=== PATIENT | female | born 1965 | race Caucasian/White ===

== ENCOUNTER 2017-04-09 10:30 | Outpatient (CLI) | payer OTHER | END 2017-04-09 10:31 | disposition home or self-care (01) | LOC: BICMAMMO 10:30 | PROVIDERS: ATTEND Obstetrics & Gynecology | DX: Z12.31 Encounter for screening mammogram for malignant neoplasm of breast (principal); R92.1 Mammographic calcification found on diagnostic imaging of breast | CPT/HCPCS: 77063; 77067 ==

== ENCOUNTER 2018-02-19 15:05 | Outpatient (CLI) | payer OTHER | END 2018-02-19 15:06 | disposition home or self-care (01) | LOC: DTY/OP 15:05 | PROVIDERS: ATTEND Specialist | DX: Z01.818 Encounter for other preprocedural examination (principal); E66.01 Morbid (severe) obesity due to excess calories | CPT/HCPCS: 97802 ==

== ENCOUNTER 2018-03-24 08:57 | Outpatient (CLI) | payer OTHER | END 2018-03-24 08:58 | disposition home or self-care (01) | LOC: DTY/OP 08:57 | PROVIDERS: ATTEND Specialist | DX: Z01.818 Encounter for other preprocedural examination (principal); E66.01 Morbid (severe) obesity due to excess calories | CPT/HCPCS: 97802 ==

== ENCOUNTER 2018-04-20 08:57 | Outpatient (CLI) | payer OTHER | END 2018-04-20 08:58 | disposition home or self-care (01) | LOC: DTY/OP 08:57 | PROVIDERS: ATTEND Specialist | DX: Z01.818 Encounter for other preprocedural examination (principal); E66.01 Morbid (severe) obesity due to excess calories | CPT/HCPCS: 97802 ==

== ENCOUNTER 2018-05-26 08:50 | Outpatient (CLI) | payer OTHER | END 2018-05-26 08:51 | disposition home or self-care (01) | LOC: DTY/OP 08:50 | PROVIDERS: ATTEND Family Medicine | DX: Z01.818 Encounter for other preprocedural examination (principal); E66.01 Morbid (severe) obesity due to excess calories | CPT/HCPCS: 97802 ==

== ENCOUNTER 2018-07-27 05:21 | Outpatient (CLI) | payer OTHER ==
[2018-07-27 15:33] LABS: #Basophils 0.1 thou/uL (0.0-0.2); #Eosinphils 0.1 thou/uL (0.0-0.7); #Lymphocytes 2.4 thou/uL (1.20-3.40); #Monocytes 0.6 thou/uL (0.11-0.59); #Neutrophils 6.7 thou/uL (1.40-6.50); %Basophils 0.8 % (0.0-1.0); %Eosinophils 1.1 % (0.0-10.0); %Lymphocytes 24.5 % (21.0-51.0); %Monocytes 6.2 % (0.0-10.0); %Neutrophils 67.5 % (42.0-75.0); Hemoglobin 14.7 g/dL (12.0-16.0); Mean Corpuscular HGB CONC 34.4 g/dL (32.0-36.0); Mean Corpuscular Hemoglobin 32.2 pg (27.0-31.0); Mean Corpuscular Volume 93.7 fL (78.0-98.0); Mean Platelet Volume 7.8 fL (7.4-10.4); Platelet Count 278 thou/uL (130-400); RBC Distribution Width 11.5 % (11.5-14.5); Red Blood Cell (RBC) Count 4.57 mill/uL (4.20-5.40)
[2018-07-27 15:41] LABS: Hemoglobin A1c 5.1 % (4.0-6.0)
[2018-07-27 15:50] LABS: Anion Gap 15 mmol/L (10-20); BUN (Urea Nitrogen) 20 mg/dL (9.8-20.1); Calc. Creatinine Clearance 0 mL/min (70-130); Calcium 9.7 mg/dL (7.8-10.44); Carbon Dioxide 26 mmol/L (22-29); Chloride 104 mmol/L (98-107); Estimated GFR-MDRD 75; Glucose 84 mg/dL (70-105); Potassium 4.5 mmol/L (3.5-5.1); Sodium 140 mmol/L (136-145)
== END 2018-07-27 05:22 | disposition home or self-care (01) ==
LOC: LABBT 05:21
PROVIDERS: ATTEND Specialist
DX: Z01.818 Encounter for other preprocedural examination (principal); E66.01 Morbid (severe) obesity due to excess calories; K21.9 Gastro-esophageal reflux disease without esophagitis; I10 Essential (primary) hypertension
CPT/HCPCS: 80048; 83036; 85025; 93005; 93010

== ENCOUNTER 2018-07-27 14:00 | Inpatient (IN) | payer OTHER ==
[2018-07-27 14:31] VITALS: BMI 37.4
[2018-07-29] MEDS ORDERED: Midazolam HCl 2 mg/2 ml Vial ONE (06:08)
[2018-07-29] MEDS ORDERED: Fentanyl 250 MCG/5 ML VIAL ONE (06:08)
[2018-07-29] MEDS ORDERED: Lidocaine 2% Jelly 5 ML TUBE ONE (06:08)
[2018-07-29] MEDS ORDERED: Bupivacaine/Epinephrine 0.25% 30 ML VIAL ONE ×2 (06:32→06:53)
[2018-07-29] MEDS ORDERED: Scopolamine 1.5 mg/72 hour Patch ONE (06:46)
[2018-07-29] MEDS ORDERED: Ketorolac Tromethamine 30 MG/ML VIAL ONE (06:46)
[2018-07-29] MEDS ORDERED: Levofloxacin 500 mg/D5W 100 ml Premix Bag ONE (06:46)
[2018-07-29] MEDS ORDERED: Heparin 5,000 UNITS/ML VIAL ONE (06:46)
[2018-07-29] MEDS ORDERED: Bupivacaine 0.25% HCL 30 ML VIAL ONE (06:47)
--- NOTE | 2018-07-29 07:56 | HP ---
HISTORY OF PRESENT ILLNESS: Delfina Truong is a 53-year-old female presenting for bariatric surgery. She attended our bariatric seminar, has seen our dietitian for education regarding laparoscopic sleeve gastrectomy, and pre and postoperative dietary changes. She is well aware of the risks and benefits of the operation. She had a nuclear stress test in 02/2015, that was normal. I initially saw her in the office on 02/05/2018. The patient is followed by Dr. David Cortez. Initially when I saw her, BMI was 39 and 229 pounds, presenting to the online seminar. She has multiple friends, who have had bariatric surgery including sleeve gastrectomy and gastric bypass. They have done well. Considering her bariatric surgical options, she desires sleeve gastrectomy. The patient is self-employed with her , managing storage facility. The patient understands she will have to make good food choices and lifestyle changes to have a durable success after bariatric surgery. Comorbidities include hypertension, but has been able to discontinue medications for this due to improved control. She has been treated for elevated cholesterol. She has GERD occasionally when over eating or eating late night meals, but overall this is not debilitating. She takes PPIs p.r.n. She has been diagnosed with sleep apnea, sleep study in the past, but does not have a CPAP. Initially when I saw her, she was 229 pounds and BMI 39 and in her preoperative visit, she is 217 pounds, 37 BMI. The patient is ready to proceed with laparoscopic sleeve gastrectomy. Preoperative labs on 02/05/2018, reveal normal CBC, normal comprehensive metabolic profile, cholesterol 183, triglycerides slightly elevated at 207, hemoglobin A1c 5.1, thyroid function tests are normal. Ferritin and vitamin D are within normal range. Folate and vitamin B12 within normal range and H pylori negative. Vitamin B1 was in the normal range. MEDICATIONS: 1. Estradiol. 2. Levothyroxine . 3. Vitamin D3 supplements. PAST MEDICAL HISTORY: As noted above. Negative cardiac stress test. She has seen Dr. Bunn in the past for colonoscopies and upper endoscopies. Hyperlipidemia; depression; mild GERD, treated with p.r.n. PPIs; hypothyroidism; arthralgias; and elevated cholesterol. PAST SURGICAL HISTORY: Thymectomy, pericardiectomy in 2011 due to benign tumor, endometriosis, total hysterectomy and bilateral salpingo-oophorectomy in 2001, tonsillectomy in 1970, appendectomy in 1990, cholecystectomy in 2000, and colonoscopy in 2009. FAMILY HISTORY: Father ; diabetes, stroke, arthritis, prostate cancer, thyroid, and hypertension. Her siblings are alive with arthritis and thyroid disease. TOBACCO: None. ALCOHOL: None. DRUG USE: None. ALLERGIES: PENICILLIN, AZITHROMYCIN, TETANUS TOXOID, AND SULFA. REVIEW OF SYSTEMS: Noncontributory. PHYSICAL EXAMINATION: VITAL SIGNS: 5 feet 4 inches, 217 pounds, 37 BMI. Blood pressure 133/75, heart rate 75, and temperature 97.9 degrees. HEAD, EARS, EYES, NOSE, AND THROAT: Unremarkable. LUNGS: Clear to auscultation. CARDIAC: Regular rate and rhythm. No murmur or gallop. ABDOMEN: Soft, obese, nontender. EXTREMITIES: Unremarkable. ASSESSMENT: Morbid obesity. PLAN: Laparoscopic sleeve gastrectomy. She understands risks and benefits of the operation and consents and we will proceed. Job ID: [id number]
[2018-07-29] MEDS ORDERED: Promethazine HCl 25 MG/ML VIAL SLOW IVP PRN (08:26)
[2018-07-29] MEDS ORDERED: Promethazine HCl 25 MG/ML VIAL IM PRN (08:26)
[2018-07-29] MEDS ORDERED: Ondansetron HCl/PF 4 MG/2 ML Vial IVP PRN (08:26)
[2018-07-29] MEDS ORDERED: Morphine 4 MG/ML VIAL SLOW IVP PRN (08:58)
[2018-07-29] MEDS ORDERED: hydrALAZINE 20 MG/ML VIAL SLOW IVP PRN (08:58)
[2018-07-29] MEDS ORDERED: diphenhydrAMINE 50 MG/ML VIAL IVP PRN (08:58)
[2018-07-29] MEDS ORDERED: Morphine 2 MG/ML SYRINGE SLOW IVP PRN (08:58)
[2018-07-29] MEDS ORDERED: Ondansetron PF 4 MG/2 ML Vial IVP PRN ×2 (08:58→17:56)
[2018-07-29] MEDS ORDERED: Fentanyl 100 MCG/2 ML VIAL ONE (09:29)
[2018-07-29] MEDS: Pantoprazole 40 MG VIAL IVP SCH (11:14)
[2018-07-29] MEDS: Ketorolac Tromethamine 30 MG/ML VIAL IVP SCH ×3 (11:14→23:42)
[2018-07-29] MEDS: Lactated Ringer's 1,000 ML IV SCH ×3 (11:15→23:47)
[2018-07-29] MEDS: Acetaminophen 1,000 MG in Premix Bag 1 BAG IVPB SCH ×2 (14:13→20:38)
--- NOTE | 2018-07-29 15:34 | OP ---
DATE OF PROCEDURE: 07/29/2018 PREOPERATIVE DIAGNOSIS: Morbid obesity. Initial presentation 39, BMI 229 pounds. Just prior to operation, 37 BMI, 217 pounds. Comorbidities: Sleep apnea, hypertension, gastroesophageal reflux disease, elevated cholesterol. PROCEDURES PERFORMED: Laparoscopic sleeve gastrectomy, 36-Afghan bougie, repair of hiatal hernia, completion endoscopy. ANESTHESIA: General, local 0.25% Marcaine with epinephrine 60 mL, total volume used. DESCRIPTION OF PROCEDURE: The patient was taken to the operating room under general anesthesia in the supine position. Abdomen was prepared with ChloraPrep and draped in routine fashion. Local anesthetic was infiltrated in the skin and subcutaneous tissue about each operative site. Supraumbilical incision, midline incision made. Pneumoperitoneum to 15 mmHg was obtained with a Veress needle, replaced with a 5 port, and laparoscope inserted. Bilateral far lateral incision was made and 5 ports placed. Bilateral midclavicular upper abdominal incision was made, a 15-port placed on the left and a 12-port on the right. Subxiphoid incision was made, and a Mo liver retractor placed under laparoscopic visualization, reflecting the left lobe of the liver anteriorly. Laparoscopic sleeve gastrectomy undertaken dividing the omentum adjacent to the greater curvature of the stomach distally, serially dividing the gastrocolic and splenic ligament up towards the angle of His. Camera removed for optimal visualization. The patient had a hiatal hernia by past endoscopy. Thus, dissection of the crura performed bilaterally, dividing the gastrohepatic ligament with the LigaSure to optimize visualization and the hiatal hernia appreciated, it was small to moderate. Stomach reduced in the abdominal cavity. Esophagus well within the abdominal cavity, visualized, kept free of harm. Attention was then turned towards placement of the bougie, 36-Afghan, placed by Anesthesia orally, visualized laparoscopically, directed towards the pylorus. Within about 6 cm of the pylorus, initial green low fire of the stapler performed taking adequate care not to encroach too close to the bougie or to the incisor. A second fire gold stapler was used and then green fire subsequently at a later time. Once the 2 fires were completed, attention was then turned to hiatal hernia repair, where by using the Endo Stitch and 3-0 Bralon suture, posterior crura approximated with the bougie in place with a single suture. This was adequate closure. At this point, the esophagus well within the abdominal cavity without tension. Completion sleeve gastrectomy performed with serial fires of the blue load stapler up towards the angle of His leaving a small cuff of fundus and avoid encroaching of the angle of His. Stomach had been completely divided and removed through the 15 port left upper quadrant. There was no spillage. 0 GraNee needle was used to place figure of 8 Vicryl and the port replaced and the staple line clipped for hemostasis, and then completion endoscopy performed with endoscope placed per os under direct visualization using air insufflation, passed out the esophagus and stomach visualizing the pylorus, passed the scope easily without restrictions. Scope withdrawn noting absence of any bleeding. Normal sleeve gastrectomy and esophagus. At this point, good hemostasis was noted. Hemostasis along with the staple line obtained with clips and wrist applied along the staple line. The patient tolerated procedure well as pneumoperitoneum reduced. All instruments removed. All skin incisions were approximated with interrupted subdermal 4-0 Monocryl and [place] glue applied. Job ID: [id number]
[2018-07-29] MEDS ORDERED: Metoclopramide 10 MG/10 ML UDCUP PO PRN (17:55)
[2018-07-29] MEDS ORDERED: Ondansetron ODT 4 MG TAB PO PRN (17:56)
[2018-07-29] MEDS ORDERED: Metoclopramide HCl 10 MG/2 ML VIAL IVP SCH (18:00)
[2018-07-29] MEDS ORDERED: Metoclopramide HCl 10 MG/2 ML VIAL IVP PRN (18:44)
[2018-07-29] MEDS ORDERED: Scopolamine 1.5 mg/72 hour Patch TD SCH (20:00)
[2018-07-29] MEDS: Enoxaparin Sodium 40 MG/0.4 ML SYRINGE SC SCH (20:38)
[2018-07-30] MEDS: Acetaminophen 1,000 MG in Premix Bag 1 BAG IVPB SCH ×2 (02:16→08:54)
[2018-07-30 04:48] LABS: #Neutrophils 10.6 thou/uL (1.40-6.50); %Basophils 0.2 % (0.0-1.0); %Eosinophils 0.1 % (0.0-10.0); %Monocytes 7.7 % (0.0-10.0); %Neutrophils 84.1 % (42.0-75.0); Hemoglobin 13.1 g/dL (12.0-16.0); Mean Corpuscular HGB CONC 33.6 g/dL (32.0-36.0); Mean Corpuscular Hemoglobin 31.2 pg (27.0-31.0); Mean Corpuscular Volume 93.1 fL (78.0-98.0); Mean Platelet Volume 8.6 fL (7.4-10.4); Platelet Count 224 thou/uL (130-400); RBC Distribution Width 11.4 % (11.5-14.5); Red Blood Cell (RBC) Count 4.18 mill/uL (4.20-5.40); White Blood Cell (WBC) Count 12.6 thou/uL (4.8-10.8)
[2018-07-30] MEDS: Ketorolac Tromethamine 30 MG/ML VIAL IVP SCH ×3 (05:42→18:10)
[2018-07-30] MEDS: Levothyroxine Sodium 50 MCG TAB PO SCH ×2 (06:03→06:04)
[2018-07-30] MEDS ORDERED: traMADol HCl 50 MG TAB PO PRN ×2 (07:00)
[2018-07-30] MEDS: Estradiol 1 MG TAB PO SCH ×2 (08:55)
[2018-07-30] MEDS: Pantoprazole 40 MG VIAL IVP SCH (08:55)
[2018-07-30] MEDS ORDERED: Acetaminophen 500 MG TAB PO PRN (09:02)
--- NOTE | 2018-07-30 09:51 | PRG ---
DATE OF SERVICE: 07/30/2018 SUBJECTIVE: Delfina Truong is doing well today. She is postop day 1, status post hiatal hernia repair and laparoscopic sleeve gastrectomy for morbid obesity. She had problems with nausea last night, did not take much p.o. She did tolerate ice chips. This morning, her nausea has resolved and she feels like she has taken bariatric liquids. She denies having any pain in her abdominal wound. She has not required anything more than 1 dose of parental Toradol and Ofirmev last night. She does not have any pain this morning. Does not require any analgesics. She is ready to try full liquids. She still, however, has IV fluids running. OBJECTIVE: LUNGS: Clear to auscultation. CARDIAC: Regular rate and rhythm without any murmur or gallop. ABDOMEN: Soft, nontender. Good bowel sounds. LABORATORY DATA: White count 12 hemoglobin 13. ASSESSMENT AND PLAN: Doing well, status post laparoscopic sleeve gastrectomy and hiatal hernia repair. I have written prescriptions for Ultram p.r.n. pain. I told the patient that and her nurse Amada, that she can take her pills without crushing. If she does well, she probably will be able to go home later today. I have written a prescription for Reglan Elixir to use only, if needed. We may not need to send her home with this prescription. She can shower and bathe and lift without restrictions. She can submerge her wounds in the bath. Job ID: [id number]
[2018-07-30] MEDS: Lactated Ringer's 1,000 ML IV SCH ×3 (10:50→20:04)
[2018-07-30] MEDS ORDERED: Hydrocodone-Acetamin 15 ML UDCUP PO PRN (14:00)
[2018-07-30] MEDS ORDERED: Promethazine HCl 25 MG/ML VIAL IM PRN (14:36)
[2018-07-30] MEDS: Enoxaparin Sodium 40 MG/0.4 ML SYRINGE SC SCH (19:54)
[2018-07-31] MEDS: Ketorolac Tromethamine 30 MG/ML VIAL IVP SCH ×2 (00:02→05:24)
[2018-07-31] MEDS: Levothyroxine Sodium 50 MCG TAB PO SCH (05:21)
[2018-07-31] MEDS: Lactated Ringer's 1,000 ML IV SCH (05:28)
[2018-07-31] MEDS ORDERED: Levothyroxine Sodium 50 MCG TAB PO SCH (06:00)
[2018-07-31 08:15] VITALS: TEMP 98
[2018-07-31] MEDS: Estradiol 1 MG TAB PO SCH ×2 (08:32)
[2018-07-31] MEDS: Pantoprazole 40 MG VIAL IVP SCH (08:33)
[2018-07-31 11:42] VITALS: BP 137/84
== END 2018-07-31 15:00 | disposition home or self-care (01) | DRG 621 ==
LOC: SURG A 07-29 05:57
PROVIDERS: ADMIT Specialist; ATTEND Specialist
PROC: 0DB64Z3 Excision of Stomach, Percutaneous Endoscopic Approach, Vertical (ICD-10-PCS; principal; 2018-07-29)
PROC: 0BQT4ZZ Repair Diaphragm, Percutaneous Endoscopic Approach (ICD-10-PCS; 2018-07-29)
PROC: 0DJ08ZZ Inspection of Upper Intestinal Tract, Via Natural or Artificial Opening Endoscopic (ICD-10-PCS; 2018-07-29)
DX: E66.01 Morbid (severe) obesity due to excess calories (principal); K21.9 Gastro-esophageal reflux disease without esophagitis; I10 Essential (primary) hypertension; E03.9 Hypothyroidism, unspecified; E78.5 Hyperlipidemia, unspecified; F32.9 Major depressive disorder, single episode, unspecified; G47.00 Insomnia, unspecified; K44.9 Diaphragmatic hernia without obstruction or gangrene; Z79.899 Other long term (current) drug therapy; Z90.710 Acquired absence of both cervix and uterus; Z90.49 Acquired absence of other specified parts of digestive tract; Z88.0 Allergy status to penicillin; Z88.2 Allergy status to sulfonamides; Z68.37 Body mass index [BMI] 37.0-37.9, adult
CPT/HCPCS: 36415; 80048; 83036; 85025; 88307; 88312; 93005; 93010; C9113; J0131; J1200; J1644; J1650; J1885; J1956; J2250; J2405; J2550; J2765; J3010; J8597; S0020

== ENCOUNTER 2019-11-30 10:15 | Observation (INO) | payer OTHER ==
[2019-11-30 11:43] LABS: INR-International Normal Ratio 0.9; PTT 29.9 sec (22.9-36.1); Prothrombin Time 12.8 sec (12.0-14.7)
--- NOTE | 2019-11-30 11:47 | CT ---
CT BRAIN WITHOUT CONTRAST: HISTORY: Headache, right-sided facial numbness Comparison 02/03/2014 FINDINGS: No evidence of acute infarct, hemorrhage, midline shift or abnormal extra-axial fluid collections is seen. The ventricular size is appropriate and the basilar cisterns are patent. The bony calvarium is intact. The visualized paranasal sinuses and mastoid air cells are well aerated. IMPRESSION: No CT evidence of acute intracranial process.
[2019-11-30 11:54] LABS: #Basophils 0.1 thou/uL (0.0-0.2); #Eosinphils 0.1 thou/uL (0.0-0.7); #Lymphocytes 2.1 thou/uL (1.20-3.40); #Monocytes 0.5 thou/uL (0.11-0.59); #Neutrophils 3.5 thou/uL (1.40-6.50); %Basophils 1.5 % (0.0-1.0); %Eosinophils 1.6 % (0.0-10.0); %Lymphocytes 33.3 % (21.0-51.0); %Monocytes 7.2 % (0.0-10.0); %Neutrophils 56.5 % (42.0-75.0); Hemoglobin 14.2 g/dL (12.0-16.0); Mean Corpuscular HGB CONC 32.9 g/dL (32.0-36.0); Mean Corpuscular Hemoglobin 32.1 pg (27.0-31.0); Mean Corpuscular Volume 97.5 fL (78.0-98.0); Mean Platelet Volume 8.6 fL (7.4-10.4); Platelet Count 219 thou/uL (130-400); RBC Distribution Width 11.6 % (11.5-14.5); Red Blood Cell (RBC) Count 4.42 mill/uL (4.20-5.40); White Blood Cell (WBC) Count 6.2 thou/uL (4.8-10.8)
[2019-11-30 12:14] LABS: ALT (SGPT) 37 U/L (8-55); AST (SGOT) 31 U/L (5-34); Albumin 3.8 g/dL (3.5-5.0); Alkaline Phosphatase 55 U/L (40-110); Anion Gap 10 mmol/L (10-20); BUN (Urea Nitrogen) 16 mg/dL (9.8-20.1); Bilirubin, Total 0.4 mg/dL (0.2-1.2); Calc. Creatinine Clearance 0 mL/min (70-130); Calcium 8.8 mg/dL (7.8-10.44); Carbon Dioxide 32 mmol/L (22-29); Chloride 105 mmol/L (98-107); Estimated GFR-MDRD 77; Globulin 2.6 g/dL (2.4-3.5); Glucose 86 mg/dL (70-105); Potassium 4.3 mmol/L (3.5-5.1); Protein, Total 6.4 g/dL (6.0-8.3); Sodium 143 mmol/L (136-145)
[2019-11-30] MEDS ORDERED: Metoclopramide HCl 10 MG/2 ML VIAL ONE (13:39)
[2019-11-30] MEDS ORDERED: Aspirin Chewable 81 MG TAB ONE (13:39)
--- NOTE | 2019-11-30 13:57 | PDOC.HHP ---
Hospitalist HPI - History of Present Illness Right-sided facial numbness History of Present Illness: Delfina Truong is a 50-year-old female with past medical history of hypothyroidism, hypertension, GERD, anxiety, status post gastric sleeve, migraines who presents to the ER for right-sided facial numbness, headache, blurry vision. Patient reports that her symptoms started 1-1/2 weeks ago with a headache that started at the occiput. She reports that her headache symptoms have been constant and fluctuating between 5-10 out of 10 pain. She reports that approximately 4 days ago she noticed the right side of her face felt heavy and numb. [place] that she was drooling out of the right side of her mouth. She also noticed that yesterday she developed blurry vision worse in the right eye than the left. She denies any loss of vision denies curtain shade-like vision. Denies chest pain, shortness of breath, palpitations. Denies abdominal pain, nausea/vomiting/diarrhea. Reports her previous migraines have been mostly in her right jehovah's witness and behind her right eye. She has not had a migraine in the past few years. She denies any gait abnormalities, upper or lower extremity numbness or weakness. Patient recently is also 130 pound status post gastric sleeve which she underwent 1.5 years ago. She no longer has hypertension or hyperlipidemia. Denies any recent surgeries or dental procedures. 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 In the ED initial vital signs 141/81, 74, 16, 97.9, 100% on room air. Head CT showed no acute abnormalities. H/H 14.2/43.1, WBC 6.2. Sodium 143, potassium 4.3. BUN/CR 16/0.78. Glucose 86. Patient received 1 L bolus of normal saline, 10 mg of metoclopramide, and 324 mg of aspirin. Hospitalist ROS - Review of Systems Constitutional: reports: malaise. denies: fever, chills, sweats, weakness, other Eyes: reports: vision change. denies: pain, conjunctivae inflammation, eyelid inflammation, redness, other ENT: reports: other (Right facial numbness, occipital headache). denies: ear pain, ear discharge, nose pain, nose discharge, nose congestion, mouth pain, mo uth swelling, throat pain, throat swelling Cardiovascular: denies: chest pain, palpitations, orthopnea, paroxysmal noc. dyspnea, edema, light headedness, other Gastrointestinal: denies: nausea, vomiting, abdominal pain, diarrhea, constipation, melena, hematochezia, other Genitourinary: denies: dysuria, frequency, incontinence, hematuria, retention, other Musculoskeletal: denies: neck pain, shoulder pain, arm pain, back pain, hand pain, leg pain, foot pain, other Skin: denies: rash, lesions, blanca, bruising, other Neurological: reports: numbness. denies: weakness, incoordination, change in speech, confusion, seizures, other Other: Numbness of right face which began approximately 3 days ago. - Medication Medications: Home medications include Levothyroxine Estradiol Allergies include erythromycin, penicillin, tetanus. Hospitalist History - Past Medical History Other Medical History: Past medical history includes obesity status post gastric sleeve, hypothyroidism. Previously had hypertension, anxiety but is no longer taking medications for these since resolved with gastric sleeve. - Past Surgical History Other Surgical History: Past surgical history includes Sleeve gastrectomy Sternotomy with teratoma removal Hysterectomy Cholecystectomy Appendectomy Tonsillectomy - Family History Other Family History: Family history significant for father who had a stroke - Social History Smoking Status: Never smoker Alcohol: reports: None Drugs: reports: none Living Situation: With Family Activity level: independent ambulation - Exam General Appearance: NAD, awake alert Eye: PERRL, anicteric sclera ENT: normocephalic atraumatic, no oropharyngeal lesions, moist mucosa Neck: supple, symmetric, no JVD, no thyromegaly, no lymphadenopathy, no carotid bruit Heart: RRR, no murmur, no gallops, no rubs, normal peripheral pulses Respiratory: CTAB, no wheezes, no rales, no ronchi, normal chest expansion, no tachypnea, normal percussion Gastrointestinal: soft, non-tender, non-distended, normal bowel sounds, no palpable masses, no hepatomegaly, no splenomegaly, no bruit Extremities: no cyanosis, no clubbing, no edema Skin: normal turgor, no lesions, no rashes Neurological: cranial nerve grossly intact, normal sensation to touch, no weakness, no focal deficits, no new deficit Neurological - other findings: No pronator drift, RAFAT nl Musculoskeletal: normal tone, normal strength, no muscle wasting Psychiatric: normal affect, normal behavior, A&O x 3 Hospitalist Results - Labs Result Diagrams: 12/01/19 04:45 12/01/19 04:45 Lab results: WBC 6.2 thou/uL (4.8-10.8) 11/30/19 11:28 Hgb 14.2 g/dL (12.0-16.0) 11/30/19 11:28 Hct 43.1 % (36.0-47.0) 11/30/19 11:28 MCV 97.5 fL (78.0-98.0) 11/30/19 11:28 Plt Count 219 thou/uL (130-400) 11/30/19 11:28 Neutrophils % 56.5 % (42.0-75.0) 11/30/19 11:28 Sodium 143 mmol/L (136-145) 11/30/19 11:28 Potassium 4.3 mmol/L (3.5-5.1) 11/30/19 11:28 Chloride 105 mmol/L (98-107) 11/30/19 11:28 Carbon Dioxide 32 mmol/L (22-29) H 11/30/19 11:28 BUN 16 mg/dL (9.8-20.1) 11/30/19 11:28 Creatinine 0.78 mg/dL (0.6-1.1) 11/30/19 11:28 Glucose 86 mg/dL (70-105) 11/30/19 11:28 Calcium 8.8 mg/dL (7.8-10.44) 11/30/19 11:28 Total Bilirubin 0.4 mg/dL (0.2-1.2) 11/30/19 11:28 AST 31 U/L (5-34) 11/30/19 11:28 ALT 37 U/L (8-55) 11/30/19 11:28 Alkaline Phosphatase 55 U/L (40-110) 11/30/19 11:28 Serum Total Protein 6.4 g/dL (6.0-8.3) 11/30/19 11:28 Albumin 3.8 g/dL (3.5-5.0) 11/30/19 11:28 Hospitalist H&P A/P - Plan Plan: Right facial numbness 54-year-old female with history of migraines presents with right-sided facial nu mbness associated with 1.5-week of a constant headache or the occiput. Patient reports that approximately 3 days ago the right side of her face felt heavy and numb. Day prior to admission patient noticed slightly blurry vision in the worse in the right eye than the left. New headache symptoms are different than her prior migraine symptoms (usually behind the R eye). CT head negative for acute abnormalities. WBC 6.2, afebrile, with no neck pain. Brudzinski's/Kernig's negative. Patient does report recent herpes cold sore. Neuro exam is wnl. Patient received metoclopramide in the ED with mild improvement in headache symptoms. She currently denies any facial numbness. At this time symptoms are most likely from complex migraine and occipital neuralgia however will pursue MRI to rule out CVA or other pathology. Low suspicion for Montero's palsy or temporal arteritis. Plan: -Telemetry monitoring -q4 neuro checks -TSH, Mg, Ca, Vitamin B12/Folate -CRP, ESR -MRI brain, Neurology consult -ASA, statin -Lipid panel Hypothyroidism Continue home levothyroxine. Will check TSH. DVT prophylaxis: SCDs Full code
--- NOTE | 2019-11-30 14:31 | RAD ---
XR Chest 1 View HISTORY: TIA, headache, right-sided facial numbness COMPARISON: None FINDINGS: The heart size is normal. There are changes of median sternotomy. The lungs are well expand ed without focal areas of consolidation, pneumothorax or pleural effusions. IMPRESSION: No radiographic evidence of acute cardiopulmonary process.
[2019-11-30 15:16] LABS: CRP (Inflammatory) Less than 0.50 mg/dL (= or < 0.5)
[2019-11-30 15:41] LABS: Thyroid Stimulating Hormone 1.8617 uIU/mL (0.35-4.94)
[2019-11-30 16:17] VITALS: BMI 23.1
[2019-11-30] MEDS: Acetaminophen 325 MG TAB PO PRN (18:58)
[2019-11-30] MEDS ORDERED: Atorvastatin Calcium 40 MG TAB PO SCH (21:00)
[2019-12-01] MEDS: Acetaminophen 325 MG TAB PO PRN ×2 (04:46→12:18)
[2019-12-01 05:01] LABS: #Basophils 0.1 thou/uL (0.0-0.2); #Eosinphils 0.1 thou/uL (0.0-0.7); #Lymphocytes 2.7 thou/uL (1.20-3.40); #Monocytes 0.4 thou/uL (0.11-0.59); #Neutrophils 2.4 thou/uL (1.40-6.50); %Basophils 1.5 % (0.0-1.0); %Eosinophils 2.3 % (0.0-10.0); %Lymphocytes 48.1 % (21.0-51.0); %Monocytes 6.4 % (0.0-10.0); %Neutrophils 41.8 % (42.0-75.0); Hemoglobin 13.2 g/dL (12.0-16.0); Mean Corpuscular HGB CONC 33.3 g/dL (32.0-36.0); Mean Corpuscular Hemoglobin 32.3 pg (27.0-31.0); Mean Platelet Volume 8.2 fL (7.4-10.4); Platelet Count 190 thou/uL (130-400); RBC Distribution Width 11.5 % (11.5-14.5); Red Blood Cell (RBC) Count 4.09 mill/uL (4.20-5.40); White Blood Cell (WBC) Count 5.6 thou/uL (4.8-10.8)
[2019-12-01 05:26] LABS: Anion Gap 6 mmol/L (10-20); BUN (Urea Nitrogen) 15 mg/dL (9.8-20.1); Calc. Creatinine Clearance 89 mL/min (70-130); Calcium 8.4 mg/dL (7.8-10.44); Carbon Dioxide 31 mmol/L (22-29); Cardiac Risk 2.1 (Less than 4.5); Chloride 106 mmol/L (98-107); Cholesterol 120 mg/dl (< 200 Desired); Estimated GFR-MDRD 87; Glucose 87 mg/dL (70-105); HDL Cholesterol 58 mg/dL (>60 Neg Risk); LDL Cholesterol, Calculated 48 mg/dL; Potassium 4.1 mmol/L (3.5-5.1); Sodium 139 mmol/L (136-145); Triglycerides 72 mg/dL (Less than 150)
[2019-12-01] MEDS ORDERED: Enoxaparin Sodium 40 MG/0.4 ML SYRINGE SC SCH (09:00)
[2019-12-01] MEDS ORDERED: Aspirin 325 mg Enteric Coated Tablet PO SCH (09:00)
[2019-12-01] MEDS ORDERED: FLU VACC QS2020-21(6MOS UP)/PF 60 MCG/0.5 ML SYRINGE IM ONE (09:00)
--- NOTE | 2019-12-01 09:27 | MRI ---
MRI BRAIN WITHOUT CONTRAST: INDICATION: TIA. Correlation made to CT scan of head. FINDINGS: Ventricles have normal size and position. No evidence of restricted diffusion. No mass or edema. No white matter abnormality. No evidence of hemorrhage. The intracranial internal carotid arteries, cerebral arteries, basilar artery, and dural venous sinus es demonstrate expected flow-voids. The paranasal sinuses are clear. There is mucosal edema in the ri ght mastoid air cells. IMPRESSION: Unremarkable MRI of brain. POS: AH
[2019-12-01 10:23] VITALS: BP 102/62
[2019-12-01 11:47] VITALS: TEMP 98.1
--- NOTE | 2019-12-01 13:08 | CON ---
NEUROLOGY CONSULTATION DATE OF CONSULTATION: 12/01/2019 REASON FOR CONSULTATION: Right-sided facial numbness. HISTORY OF PRESENT ILLNESS: Ms. Delfina Truong is a 54-old female with medical history significant for hypothyroidism, hypertension, GERD, anxiety, status post gastric sleeve and right-sided migraines, presented to the emergency room with right- sided facial numbness and headache and blurred vision. Per the patient, the symptoms started 1-1/2 weeks ago with headache in the occipital region. However, the headache usually fluctuates between 5-10 an on a scale. Per patient she noted 4 days ago that she has right side of her face felt heavy and numb and she has drooling from the right side of the mouth. She also developed blurred vision from the right eye, so she decided to come to the emergency room for further evaluation. The patient denies focal weakness, focal paresthesias, nausea, vomiting, headache, chest pain, abdominal pain, vertigo, problems with speech or swallowing associated with the episode. This morning the patient headache is almost resolved and neurological symptoms and numbness has also resolved. She also had a 30 pounds weight loss because of gastric sleeve 1-1/2 years ago. The patient denies chest pain, abdominal pain, recent illness or exposure to COVID. In the emergency room she was given metoclopramide, saline and aspirin and was admitted for further evaluation. REVIEW OF SYSTEMS: All 14 systems were reviewed and were negative except the pertinent positives and negatives mentioned in the HPI. HOME MEDICATIONS: 1. Levothyroxine. 2. Estradiol. ALLERGIES: ERYTHROMYCIN, PENICILLIN, TETANUS. PAST MEDICAL HISTORY: Obesity, status post gastric sleeve, hypothyroidism, hypertension, anxiety. PAST SURGICAL HISTORY: Sleeve gastrectomy, sternotomy with teratoma removal, hysterectomy, cholecystectomy, appendectomy, tonsillectomy. FAMILY HISTORY: Significant for stroke on the maternal side. SOCIAL HISTORY: The patient denies smoking, alcohol, illegal drug use. She lives with family and independent ambulation PHYSICAL EXAMINATION: : VITAL SIGNS: Blood pressure 141/81, pulse 74, respiratory rate 16, temperature 97.9. General Appearance: NAD, awake alert Eye: PERRL, anicteric sclera ENT: normocephalic atraumatic, no oropharyngeal lesions, moist mucosa Neck: supple, symmetric, no JVD, no thyromegaly, no lymphadenopathy, no carotid bruit Heart: RRR, no murmur, no gallops, no rubs, normal peripheral pulses Respiratory: CTAB, no wheezes, no rales, no ronchi, normal chest expansion, no tachypnea, normal percussion Gastrointestinal: soft, non-tender, non-distended, normal bowel sounds, no palpable masses, no hepatomegaly, no splenomegaly, no bruit Extremities: no cyanosis, no clubbing, no edema Skin: normal turgor, no lesions, no rashes Neurological: cranial nerve grossly intact, normal sensation to touch, no weakness, no focal deficits, no new deficit Neurological - Mental status, the patient is alert and oriented to person, place, and time. Recent and remote memory intact. Fund of knowledge is appropriate. Speech is clear. Cranial nerves 2 through 12. Motor: Muscle tone and bulk are normal. Strength 5/5 bilaterally. Sensory intact. Gait deferred due to patient's safety reasons. Cerebellar, finger-nose testing intact. DATA REVIEWED: I reviewed the labs which were essentially unremarkable. Head CT did not reveal any acute intracranial pathology. Lab results: WBC 6.2 thou/uL (4.8-10.8) 11/30/19 11:28 Hgb 14.2 g/dL (12.0-16.0) 11/30/19 11:28 Hct 43.1 % (36.0-47.0) 11/30/19 11:28 MCV 97.5 fL (78.0-98.0) 11/30/19 11:28 Plt Count 219 thou/uL (130-400) 11/30/19 11:28 Neutrophils % 56.5 % (42.0-75.0) 11/30/19 11:28 Sodium 143 mmol/L (136-145) 11/30/19 11:28 Potassium 4.3 mmol/L (3.5-5.1) 11/30/19 11:28 Chloride 105 mmol/L (98-107) 11/30/19 11:28 Carbon Dioxide 32 mmol/L (22-29) H 11/30/19 11:28 BUN 16 mg/dL (9.8-20.1) 11/30/19 11:28 Creatinine 0.78 mg/dL (0.6-1.1) 11/30/19 11:28 Glucose 86 mg/dL (70-105) 11/30/19 11:28 Calcium 8.8 mg/dL (7.8-10.44) 11/30/19 11:28 Total Bilirubin 0.4 mg/dL (0.2-1.2) 11/30/19 11:28 AST 31 U/L (5-34) 11/30/19 11:28 ALT 37 U/L (8-55) 11/30/19 11:28 Alkaline Phosphatase 55 U/L (40-110) 11/30/19 11:28 Serum Total Protein 6.4 g/dL (6.0-8.3) 11/30/19 11:28 Albumin 3.8 g/dL (3.5-5.0) 11/30/19 11:28 ASSESSMENT AND PLAN: Ms. Delfina Truong is a 54-year-old female with history of migraine, presented with headache with right-sided facial numbness, which is now resolved, most likely complicated migraine with neurological features. MRI of the brain reviewed which was negative for acute intracranial pathology. Continue neuro checks every 4 hours. Continue home medications. Continue medical management per primary team. The patient should follow up as outpatient for prophylactic treatment of migraines. Plan discussed in detail with the patient, nursing staff and also with the primary attending, Dr. Trinh. Job ID: [id number] [facility]ALKareem
[2019-12-02 14:16] LABS: SARS-CoV-2 MS2 Positive; SARS-CoV-2 N Gene Negative; SARS-CoV-2 S Gene Negative; SARS-CoV-2 by NAA Not Detected (NotDetected); SARS-CoV-2 orf1ab Negative
--- NOTE | 2019-12-03 13:43 | DIS ---
DATE OF ADMISSION: 11/30/2019 DATE OF DISCHARGE: 12/01/2019 DISCHARGE DIAGNOSES: 1. Complex migraine. 2. Hypothyroidism. 3. History of migraine headache. CONSULTATION: Neurology, Dr. Zuleta. PROCEDURES: None. LABORATORY DATA AND IMAGING STUDY: WBC 5.6, hemoglobin 13.2, hematocrit 39.7, platelet 190. INR 0.9. Chemistry; sodium 139, potassium 4.1, chloride is 106, carbon dioxide 31, BUN 15, creatinine 0.7. Vitamin B12 of 1068. TSH 1.8, LDL 120. CRP 0.5. LFT within normal limits. Magnesium 2.0. ESR 2. HISTORY OF PRESENT ILLNESS AND BRIEF HOSPITAL COURSE: The patient is a pleasant 54-year-old female, who has significant past medical history of hypothyroidism, GERD, anxiety disorder, history of migraine, status post gastric sleeve, who presented to the ED with complaint of right-sided facial numbness and headache associated with visual disturbance. Her symptoms intermittently in the past week or so, sometimes radiate to the occipital region. For that reason, she came to the ED for further evaluation. She was subsequently admitted to hospitalist service for further workup. Her MRI was completely normal. Her symptom has resolved. Her sedimentation rate and CRP were within normal limits. Her symptoms and clinical presentation suggestive of complex migraine. I have discussed with Dr. Zuleta, we will have her follow up with Neurology clinic as outpatient. The patient apparently was seen by Dr. Burk many years ago for similar problem. At this time, her symptoms resolved. The patient is stable to discharge home with outpatient followup with her PCP and Neurology. She will be discharged home with a prescription of Fioricet that she can take as needed for headache. DISPOSITION: The patient is stable to discharge home. ACTIVITY: As tolerated. DIET: Cardiac diet. FOLLOWUP CARE: The patient to follow up with her PCP in 1 to 2 weeks and follow up with Neurology Clinic as soon as possible. PHYSICAL EXAMINATION: VITAL SIGNS: Temperature is 98.1, pulse 75, respiratory rate is 16, she is saturating 99% on room air, blood pressure is 102/62. GENERAL APPEARANCE: The patient appears to be comfortable. She is not in acute distress. HEENT: Normocephalic, atraumatic. Mucous membranes moist. NECK: Supple. No lymphadenopathy. No JVD. CARDIOVASCULAR: Regular rate and rhythm. S1 and S2 noted. No murmur. PULMONOLOGY: Clear to auscultation bilaterally. ABDOMEN: Soft, nontender, nondistended. Positive bowel sounds. MUSCULOSKELETAL: No joint pain or tenderness. No lower extremity edema. NEUROLOGIC: Cranial nerves 2 through 12 grossly intact. No focal weakness. PSYCHIATRIC: The patient is alert and oriented x3 with normal affect. DISCHARGE MEDICATIONS: 1. Continue multivitamin supplement. 2. Biotin 1000 mcg one tablet p.o. daily. 3. Estradiol 1 mg p.o. daily. 4. Levothyroxine 50 mcg tablet p.o. daily. 5. Tylenol 1000 mg q.6 p.r.n. New prescription, Fioricet 1 tab q.4 p.r.n. for headache. Thank you for allowing us to participate in this patient's care. Discharge time spent, 30 minutes. Job ID: [id number]
--- NOTE | 2019-12-04 11:03 | EKG ---
Test Reason : Blood Pressure : / mmHG Vent. Rate : 068 BPM Atrial Rate : 068 BPM P-R Int : 182 ms QRS Dur : 084 ms QT Int : 426 ms P-R-T Axes : 059 -06 046 degrees QTc Int : 452 ms Normal sinus rhythm Possible Left atrial enlargement Cannot rule out Inferior infarct , age undetermined Abnormal ECG Confirmed by ARNALDO BOYD DO ([id number]), photography editor NAVEEN SANCHEZ ([id number] on 12/04/2019 11:02:57 AM Referred By: Confirmed By:ARNALDO BOYD DO
== END 2019-12-01 14:24 | disposition home or self-care (01) ==
LOC: ERS 10:15 → 2SE 13:34
PROVIDERS: ADMIT Student in an Organized Health Care Education/Training Program; ATTEND Student in an Organized Health Care Education/Training Program
DX: G43.809 Other migraine, not intractable, without status migrainosus (principal); E03.9 Hypothyroidism, unspecified; F41.9 Anxiety disorder, unspecified; K21.9 Gastro-esophageal reflux disease without esophagitis; I10 Essential (primary) hypertension; Z79.899 Other long term (current) drug therapy; Z88.0 Allergy status to penicillin; Z88.1 Allergy status to other antibiotic agents; Z88.7 Allergy status to serum and vaccine; Z20.828 Contact with and (suspected) exposure to other viral communicable diseases
CPT/HCPCS: 36415; 70450; 70551; 71045; 80048; 80053; 80061; 82607; 82746; 83735; 84443; 85025; 85610; 85652; 85730; 86140; 87635; 90471; 90662; 93005; 96365; 96372; G0008; G0378; J1650; J2765; U0003

== ENCOUNTER 2020-12-22 11:02 | Outpatient (CLI) | payer OTHER | END 2020-12-22 11:03 | disposition home or self-care (01) | LOC: BICRAD 11:02 | PROVIDERS: ATTEND Internal Medicine Cardiovascular Disease | DX: R07.9 Chest pain, unspecified (principal) | CPT/HCPCS: 71046 ==